=== PATIENT | male | born 1995 | race Hispanic/Latino ===

== ENCOUNTER 2017-01-05 10:26 | Emergency (ER) | payer OTHER, SELFPAY ==
--- NOTE | 2017-01-05 12:08 | RAD ---
LEFT HAND THREE VIEWS: HISTORY: Emergency exam. Sharp pain to left hand. COMPARISON: Left hand from 2013. FINDINGS: No acute fracture or malalignment. Soft tissues are unremarkable. IMPRESSION: No acute fracture or malalignment. POS: [facility]
== END 2017-01-05 12:40 | disposition home or self-care (01) ==
LOC: ERS 10:26
DX: S66.912A Strain of unspecified muscle, fascia and tendon at wrist and hand level, left hand, initial encounter (principal); X58.XXXA Exposure to other specified factors, initial encounter